=== PATIENT | male | born 1990 | race Caucasian/White ===

== ENCOUNTER → 2017-03-14 | Outpatient (CLI) | payer OTHER | LOC: BMCIMAGING 11:40 | PROVIDERS: ATTEND Family Medicine | DX: S22.32XA Fracture of one rib, left side, initial encounter for closed fracture (principal) | CPT/HCPCS: 71101-PO ==

== ENCOUNTER 2018-10-31 22:52 | Emergency (ER) | payer OTHER ==
[2018-10-31] MEDS ORDERED: TDAP ADULT 0.5 ML INJ (BOOSTRIX) IM ONE (23:35)
[2018-10-31] MEDS ORDERED: AMOXICILLIN/CLAVULANATE POT 875/125 MG TAB PO ONE (23:35)
--- NOTE | 2018-10-31 23:37 | EDPHY ---
General - History Smoking Status: Never smoked Time Seen by Provider: 10/31/18 23:36 Narrative: CLINICAL IMPRESSION: Dog bite, multiple facial laceration ASSESSMENT/PLAN: Patient is a 28-year-old male with no significant medical history who presents after sustaining a dog bite to the face. Patient is nontoxic-appearing, he is in no acute distress. Physical examination reveals multiple abrasions noted superior to the upper lip, a 2 cm laceration superior to the right upper lip extending to the oral commissure as well as 5 mm laceration inferior to the mid left lower lip. Both wounds were gaping; there was no evidence of deep structure involvement, bony involvement or vascular compromise. I discussed increased risk of closing these wounds however secondary to the gaping nature these were loosely closed. The areas were copiously irrigated and cleansed prior to closing, dressed with antibiotic ointment. The patient's tetanus status was updated while in the emergency department, 1st dose of Augmentin was given. Although we do not have one listed the patient does have a primary care provider and will call to schedule an appointment for a wound check within 48 hours; if he is unable to be seen by his primary care provider he will return to the emergency Department for a wound check. He will continue Augmentin for the next 7 days. On repeat examination and prior to discharge the patient is well appearing, no other injuries were identified and all questions and concerns have been answered. Strict return precautions were discussed-patient to return for any concerns for infection including increased redness, warmth, drainage, swelling, significant pain; he will return for any concerning symptom. The patient verbalizes understanding and he is in agreement with this plan. DIFFERENTIAL DX: Differential diagnosis including but not limited to and in no particular order puncture wound, laceration, deep structure involvement, bony involvement, foreign body ED PROCEDURES: Laceration Repair Verbal consent obtained by patient. Risks discussed, including but not limited to infection, pain, retained foreign body, need for additional repair, poor cosmetic result, tendon damage, nerve damage, poor wound healing, vascular damage. Alternatives to repair discussed. [place] protocol used to establish correct patient, procedure, equipment, cryptologic support specialist, and site. Anesthesia obtained by local infiltration. Anesthetized with 1% lidocaine with epinephrine. There are 2 separate lacerations, laceration 1 is 2 cm in length and is located superior lateral right lip into the oral, [place], gaping in nature. Second laceration is 5 mm in length inferior to the mid left lower lip. Does not involve the vermilion border. Repair type simple. Patient was prepped and draped in usual sterile fashion. Hemostasis achieved with direct pressure. Wound explored through full range of motion and entire depth of wound probed and visualized with gloved finger. No suspicion for nerve damage, tendon damage, underlying fracture, vascular damage, foreign body, or contamination. Area was cleansed with Shur-Clens and irrigated with sterile saline as per protocol. No foreign body or material removed. Repair method 6.0 Prolene suture, simple interrupted. Laceration 1. Was closed with 6 interrupted sutures, laceration 2. Was closed with 1 simple interrupted suture. Well aligned, loosely approximated. wound was dressed with antibiotic ointment. Patient tolerated well with no immediate complications. Wound care: Clean and dry x 24 hours, gently clean with soap and water, cover with topical antibiotic ointment/bandage. Suture/Staple removal: 5 Days ED COURSE: 0000: Case discussed with Dr. Baldwin CHIEF COMPLAINT: Dog bite, facial lacerations HPI: Patient is a 28-year-old male with no significant medical history who presents to the emergency department after sustaining a dog bite to the face. Patient is currently house and dog sitting for friend, the dog escape the house and when he went to pick him up the dog appeared to get scared and ultimately bit him in the face. The dog is vaccinated. The patient reports single site lacerations to his face, no other injuries or complaints. He was able to get the bleeding under control. He is not up-to-date on his tetanus status. PAST MEDICAL HISTORY: Denies Family History: Noncontributory Social History: Occasional alcohol, denies illicit drug use ROS: A full 10 point review of systems was negative except for those mentioned in HPI. PHYSICAL EXAM: General Appearance: Alert, well-appearing and in no acute distress. HENT: Normocephalic. Nares are clear, mucosa is pink. Patient with multiple abrasions noted superior to the upper lip. There is a 2 cm laceration superior to the right upper lip extending into the commissure, there is a very small puncture extending into the internal mucosa of the mouth; a 2nd laceration was identified and is 5 mm in length inferior to the mid left lower lip, this does not involve the vermilion border. There is no malocclusion. Eyes: PERRLA, EOMI intact. Conjunctiva pink, no pallor or injection Neck: Supple, nontender, no lymphadenopathy, no midline pain, FROM. Respiratory: There are no retractions, lungs are clear to auscultation. Cardiac: Regular rate and rhythm, no murmurs or gallops. Gastrointestinal: Abdomen is soft, nontender, bowel sounds normal, no masses/ hernia, no rigidity, guarding or focal peritoneal findings. Skin: Warm, dry, no rashes, no nodules on palpation. MEDICAL DECISION MAKING: Patient was seen independently. Secondary supervising physician at time of evaluation was Dr. Baldwin, she did not evaluate this patient. Diagnosis: Dog bite, facial lacerations. New, requires workup Summary: See Assessment and Plan for summary of ED visit Clinical lab tests: Not applicable. Independent visualization of images, tracing, or specimens: Not applicable. Decision to obtain medical records or history from someone other than the patient: No Review / Summarize previous medical records: Yes Discussed patient with another provider: Yes, Dr. Baldwin Patient Progress: Stable, discharge. (Berta Castano) PHYSICIAN DOCUMENTATION: The patient was evaluated and managed by the Physician Heel Shaver. My co- signature indicates that I have reviewed this chart and I agree with the findings and plan of care as documented. I am the secondary supervising physician. (Jacey Baldwin) - Objective Vital Signs: Initial Vital Signs Temperature (C) 36.6 C 10/31/18 22:58 Heart Rate 79 10/31/18 22:58 Respiratory Rate 16 10/31/18 22:58 Blood Pressure 135/74 H 10/31/18 22:58 O2 Sat (%) 94 10/31/18 22:58 O2 Delivery Mode Room Air Allergies/Adverse Reactions: vancomycin Allergy (Verified 10/31/18 22:57) Home Medications: Medication Instructions Recorded Amoxicillin/Clavulanate Pot 875 mg PO BID #14 tab 10/31/18 [Augmentin 875 MG TAB (*)] Trintellix 10/31/18 Medications Given: Discontinued Medications Amoxicillin/Clavulanate Potassium (Augmentin 875mg) 875 mg PO EDNOW ONE PRN Reason: Protocol Stop: 10/31/18 23:36 Last Admin: 11/01/18 00:10 Dose: 875 mg Diphtheria/Tetanus/Acell Pertussis (Boostrix) 0.5 ml IM .ONCE ONE Stop: 10/31/18 23:36 Last Admin: 11/01/18 00:10 Dose: 0.5 ml Departure - Departure Disposition: Home, Routine, Self-Care Clinical Impression: Dog bite of face Qualifiers: Encounter type: initial encounter Qualified Code(s): S01.85XA - Open bite of other part of head, initial encounter Condition: Good Instructions: Animal Bite (ED) Additional Instructions: DISCHARGE INSTRUCTIONS FROM YOUR DOCTOR Thank you for visiting our emergency department today. Please keep in mind that discharge from the emergency department does not mean that there is nothing wrong - it simply means that we have not identified an emergency condition that requires further evaluation or treatment in the hospital. You should always plan to follow up with primary care for re-evaluation of your condition in the next 2-3 days. You will need your sutures removed within 5 days, you may return to the emergency department for suture removal. Rest, push fluids, healthy diet, all to help support your immune system fight off infection. Clean your wounds clean and dressed. Clean at least four times daily or when soiled with gentle soap and water, apply a dressing and wear the splint for relative immobilization and protection. Elevate the affected hand as much as possible. Augmentin antibiotic as prescribed. Next dose in 12 hours. Take with food. Consider over the counter probiotics to help prevent antibiotic associated diarrhea. For pain control: You may take Tylenol, I recommend 500-1000 mg every 6-8 hours as needed. Take with food and a full glass of water. Stop taking if this is upsetting her stomach. Do not exceed 4000 mg in a 24 hr period. You may also take ibuprofen, recommend 400 mg every 6 hr. Take with food and a full glass of water. Stop taking if this upsets her stomach. Do not exceed 2400 mg in a 24 hr period. Follow-up with animal control in the next 12-24 hours for ongoing discussion regarding the vaccination status of the offending dog. Re-address the pursuit of rabies prophylaxis with animal control and your primary care provider. Follow-up in the next 1-2 days for a wound check, sooner for any concerns. As discussed, dog bite wounds are at high risk of infection. Return for increased or unmanageable pain, development of redness, swelling, warmth, drainage, heavy bleeding, red streaking, fever, chills, nausea, vomiting , dizziness, weakness, bloody diarrhea, rash, difficulty breathing or swallowing , or for any other new, worsening, or worrisome symptoms. People present with illnesses and injuries in different ways, and it is always possible that we have missed something. You may always return for re-evaluation if symptoms worsen or if they are not improving or if you develop new/different symptoms. Again, thank you for choosing our emergency department. We hope that you feel better. Referrals: Ruby Dean MD [Medical Doctor] - As per Instructions (Please establish care with a primary care provider) ED,PHYSICIAN MARIA A [Medical Doctor] - As per Instructions (Five days suture removal) Prescriptions: Amoxicillin/Clavulanate Pot [Augmentin 875 MG TAB (*)] 875 mg PO BID #14 tab
[2018-11-01 00:31] VITALS: BP 136/73
== END 2018-11-01 00:30 | disposition home or self-care (01) ==
DX: S01.551A Open bite of lip, initial encounter (principal); W54.0XXA Bitten by dog, initial encounter; Y93.89 Activity, other specified

== ENCOUNTER → 2018-12-25 | Outpatient (CLI) | payer OTHER | LOC: BMCIMAGING 10:02 | PROVIDERS: ATTEND Family Medicine | DX: I82.4Z1 Acute embolism and thrombosis of unspecified deep veins of right distal lower extremity (principal) ==